=== PATIENT | female | born 1990 | race Hispanic/Latino ===

== ENCOUNTER 2017-10-25 12:12 | Observation (INO) | payer OTHER ==
[~2017-10-25] VITALS: Ht 154.9 cm; Wt 87.5 kg
[2017-10-25] MEDS ORDERED: LACTATED RINGERS 1000ML 1,000 ML IV SCH (12:30)
== END 2017-10-25 14:25 | disposition home or self-care (01) ==
LOC: EEVIPCON 12:12 → LDH 12:12
PROVIDERS: ADMIT Obstetrics & Gynecology; ATTEND Obstetrics & Gynecology
DX: O36.8130 Decreased fetal movements, third trimester, not applicable or unspecified (principal); Z3A.28 28 weeks gestation of pregnancy
CPT/HCPCS: 76819; G0378 ×3; J7120; 96360